=== PATIENT | female | born 1990 | race Caucasian/White ===

== ENCOUNTER 2019-04-06 21:20 | Emergency (ER) | payer SELFPAY ==
[~2019-04-06] VITALS: Ht 154.9 cm; Wt 54.4 kg
[2019-04-06] MEDS ORDERED: LIDOCAINE W/ EPINEPHRINE 2% INJ 20ML VIAL IJ ONE (22:15)
[2019-04-06 22:19] VITALS: BP 128/92
== END 2019-04-06 23:15 | disposition home or self-care (01) ==
LOC: ER 21:23
DX: S01.511A Laceration without foreign body of lip, initial encounter (principal); W54.0XXA Bitten by dog, initial encounter; Y93.89 Activity, other specified; Y99.8 Other external cause status; Y92.89 Other specified places as the place of occurrence of the external cause
CPT/HCPCS: 12011

== ENCOUNTER 2019-04-14 15:53 | Emergency (ER) | payer MEDICAID, OTHER ==
[~2019-04-14] VITALS: Ht 154.9 cm; Wt 58.1 kg
[2019-04-14 16:40] VITALS: BP 118/68
== END 2019-04-14 16:50 | disposition home or self-care (01) ==
LOC: ER 15:54
DX: S01.511D Laceration without foreign body of lip, subsequent encounter (principal); X58.XXXD Exposure to other specified factors, subsequent encounter

== ENCOUNTER 2021-04-24 09:48 | Emergency (ER) | payer MEDICAID ==
[~2021-04-24] VITALS: Ht 154.9 cm; Wt 59.0 kg
[2021-04-24 10:12] LABS: Urine WBC None Seen /hpf (0 - 5)
[2021-04-24 10:39] LABS: Urine Bacteria FEW /hpf (None Seen); Urine Blood 1+ /uL (Negative); Urine Specific Gravity 1.003 (1.001-1.035)
[2021-04-24 10:46] LABS: Basophils # (auto) 0.1 10 ^3/uL (0-0.2); Basophils % (auto) 0.8 % (0.0-2.0); Eosinophils # (auto) 0 10 ^3/uL (0-0.8); Eosinophils % (auto) 0.4 % (0.0-7.0); Hematocrit 42.3 % (36.0-46.0); Hemoglobin 14.5 g/dL (12.2-16.2); Lymphocytes # (auto) 2.5 10 ^3/uL (0.4-5.4); Lymphocytes % (auto) 24.5 % (10.0-50.0); Mean Corpuscular Hemoglobin 31.9 pg (28.0-32.0); Mean Corpuscular Hgb Conc. 34.2 g/dL (32.0-36.0); Mean Corpuscular Volume 93.2 fL (80.0-100.0); Monocytes # (auto) 1.1 10 ^3/uL (0-1.3); Monocytes % (auto) 10.8 % (0.0-12.0); Neutrophils # (auto) 6.6 10 ^3/uL (1.6-8.6); Neutrophils % (auto) 63.5 % (37.0-80.0); Nucleated Red Blood Cells % 0.1 %; Red Blood Cells 4.53 10^6/uL (4.0-5.20); Red Cell Distribution Width 13.2 % (11.8-14.3); White Blood Cell 10.4 10^3/uL (4.4-10.8)
[2021-04-24 10:48] LABS: Albumin 3.6 g/dL (3.4-5.0); Calcium 8.6 mg/dL (8.5-10.1)
[2021-04-24 10:51] LABS: BUN/Creatinine Ratio 4.2; Bilirubin, Total 0.3 mg/dL (0.2-1.0); Total Protein 8.5 g/dL (6.4-8.2)
[2021-04-24 11:10] LABS: Potassium 5.1 mmol/L (3.5-5.1)
[2021-04-24 11:31] LABS: Barbiturate Scree,Urine NEGATIVE (NEGATIVE); Cannabinoid Screen, Urine NEGATIVE (NEGATIVE)
[2021-04-24 11:43] LABS: Amphetamine Screen, Urine NEGATIVE (NEGATIVE); Benzodiazephine Screen, Urine NEGATIVE (NEGATIVE); Cocaine Screen, Urine NEGATIVE (NEGATIVE); Opiate Scree,Urine NEGATIVE (NEGATIVE); Phencyclidine Screen, Urine NEGATIVE (NEGATIVE)
[2021-04-24 13:07] VITALS: BP 105/72
[2021-04-24] MEDS ORDERED: AZIT250T9 PO (13:26)
[2021-04-24] MEDS ORDERED: NITR-87 PO (13:34)
== END 2021-04-24 13:46 | disposition home or self-care (01) ==
LOC: ER 09:48
DX: N39.0 Urinary tract infection, site not specified (principal); F10.10 Alcohol abuse, uncomplicated; Z32.02 Encounter for pregnancy test, result negative
CPT/HCPCS: 36415; 74176; 80053; 80307; 81001; 81025; 83690; 85025